=== PATIENT | male | born 1985 | race American Indian/Alaskan Native ===

== ENCOUNTER 2019-06-30 04:17 | Emergency (ER) | payer SELFPAY ==
[2019-06-30 05:09] LABS: Basophils # (Auto) 0.1 K/mm3 (0.0-0.1); Basophils % (Auto) 1.4 % (0.0-1.8); Eosinophils # (Auto) 0.4 K/mm3 (0.0-0.4); Eosinophils % (Auto) 6.1 % (0.0-4.3); Hematocrit 43.2 % (35.5-45.6); Hemoglobin 15.2 gm/dl (11.8-15.2); Lymphocytes # (Auto) 2.3 K/mm3 (1.2-5.4); Lymphocytes % (Auto) 38.2 % (13.4-35.0); Mean Corpuscular HGB Conc 35 % (32-34); Mean Corpuscular Volume 87 fl (84-94); Monocytes # (Auto) 0.4 K/mm3 (0.0-0.8); Monocytes % (Auto) 7.5 % (0.0-7.3); Platelet Count 261 K/mm3 (140-440); Red Blood Count 4.99 M/mm3 (3.65-5.03)
[2019-06-30 05:24] LABS: Alanine Aminotransferase 24 units/L (7-56); Albumin 4.4 g/dL (3.9-5); BUN/Creatinine Ratio 17; Blood Urea Nitrogen 15 mg/dL (9-20); Calcium 8.6 mg/dL (8.4-10.2); Hemolysis Index 14
[2019-06-30] MEDS ORDERED: MORPHINE 4 MG/1 ML INJ IV ONE (06:00)
[2019-06-30] MEDS ORDERED: ONDANSETRON 4 MG/2 ML INJ IV ONE (06:00)
[2019-06-30] MEDS ORDERED: SODIUM CHLORIDE 0.9% 1000 ML 1,000 ML IV ONE (06:01)
[2019-06-30 07:22] LABS: Bilirubin,Urine NEG (Negative); Blood,Urine LG (Negative); Color,Urine Yellow (Yellow); Mucus,Urine FEW /HPF; Protein,Urine <15 mg/dL mg/dL (Negative); Urobilinogen,Urine < 2.0 mg/dL (<2.0)
--- NOTE | 2019-06-30 07:44 | Emergency Department Report ---
ED Abdominal Pain HPI - General Chief Complaint: Abdominal Pain Stated Complaint: RIGHT FLANK PAIN/NADIA Time Seen by Provider: 06/30/19 07:30 Source: patient Mode of arrival: Ambulatory Limitations: No Limitations - History of Present Illness Initial Comments: This is a 34-year-old male with no prior medical history who presents to ED complaining of right flank pain that started today. Patient states that he woke up and started experiencing right-sided flank pain and had 1 episode of vomiting that resolved. Patient denies any history of kidney stone. Patient also denies dysuria, fever, chills, nausea, abdominal pain, chest pain, shortness of breath. Patient denies any recent unusual foods. MD Complaint: abdominal pain Severity scale (0 -10): 5 - Related Data Previous Rx's Medication Instructions Recorded Last Taken Type Chlorthalidone [Thalitone] 25 mg PO QDAY #30 tablet 10/19/15 Unknown Rx Famotidine [Pepcid] 20 mg PO BID #20 tablet 06/30/19 Unknown Rx Ketorolac [Toradol] 10 mg PO Q6H PRN #20 tablet 06/30/19 Unknown Rx Ondansetron (Nf) [Zofran TAB] 8 mg PO Q8HR #20 tablet 06/30/19 Unknown Rx Allergies Allergy/AdvReac Type Severity Reaction Status Date / Time No Known Allergies Allergy Unverified 10/18/15 10:09 ED Review of Systems ROS: Stated complaint: RIGHT FLANK PAIN/NADIA Other details as noted in HPI Comment: All other systems reviewed and negative ED Past Medical Hx - Past Medical History Previous Medical History?: No Hx Congestive Heart Failure: No Hx Diabetes: No Hx Asthma: No Hx COPD: No - Surgical History Past Surgical History?: Yes Hx Appendectomy: Yes Additional Surgical History: "FLUID DRAINED FROM BRAIN" - Social History Smoking Status: Never Smoker Substance Use Type: Alcohol - Medications Home Medications: Home Medications Medication Instructions Recorded Confirmed Last Taken Type Chlorthalidone [Thalitone] 25 mg PO QDAY #30 tablet 10/19/15 Unknown Rx Famotidine [Pepcid] 20 mg PO BID #20 tablet 06/30/19 Unknown Rx Ketorolac [Toradol] 10 mg PO Q6H PRN #20 tablet 06/30/19 Unknown Rx Ondansetron (Nf) [Zofran TAB] 8 mg PO Q8HR #20 tablet 06/30/19 Unknown Rx ED Physical Exam - General Limitations: No Limitations General appearance: alert, in no apparent distress - Head Head exam: Present: atraumatic, normocephalic - Eye Eye exam: Present: normal appearance - ENT ENT exam: Present: mucous membranes moist - Neck Neck exam: Present: normal inspection - Respiratory Respiratory exam: Present: normal lung sounds bilaterally. Absent: respiratory distress - Cardiovascular Cardiovascular Exam: Present: regular rate, normal rhythm. Absent: systolic murmur, diastolic murmur, rubs, gallop - GI/Abdominal GI/Abdominal exam: Present: soft, normal bowel sounds. Absent: tenderness (nontender in all quadrants of the abdomen), guarding, rebound, mass - Rectal Rectal exam: Present: deferred - Extremities Exam Extremities exam: Present: normal inspection, full ROM - Back Exam Back exam: Present: normal inspection, full ROM. Absent: tenderness, CVA tenderness (R), CVA tenderness (L) - Neurological Exam Neurological exam: Present: alert, oriented X3, normal gait - Psychiatric Psychiatric exam: Present: normal affect, normal mood - Skin Skin exam: Present: warm, dry, intact, normal color. Absent: rash ED Course Vital Signs 06/30/19 04:23 Temperature 97.8 F Pulse Rate 81 Respiratory 18 Rate Blood Pressure 124/73 O2 Sat by Pulse 98 Oximetry ED Medical Decision Making - Lab Data Result diagrams: 06/30/19 04:54 06/30/19 04:54 Laboratory Last Values WBC 5.9 K/mm3 (4.5-11.0) 06/30/19 04:54 RBC 4.99 M/mm3 (3.65-5.03) 06/30/19 04:54 Hgb 15.2 gm/dl (11.8-15.2) 06/30/19 04:54 Hct 43.2 % (35.5-45.6) 06/30/19 04:54 MCV 87 fl (84-94) 06/30/19 04:54 MCH 30 pg (28-32) 06/30/19 04:54 MCHC 35 % (32-34) H 06/30/19 04:54 RDW 14.0 % (13.2-15.2) 06/30/19 04:54 Plt Count 261 K/mm3 (140-440) 06/30/19 04:54 Lymph % (Auto) 38.2 % (13.4-35.0) H 06/30/19 04:54 [place] % (Auto) 7.5 % (0.0-7.3) H 06/30/19 04:54 Eos % (Auto) 6.1 % (0.0-4.3) H 06/30/19 04:54 Baso % (Auto) 1.4 % (0.0-1.8) 06/30/19 04:54 Lymph # 2.3 K/mm3 (1.2-5.4) 06/30/19 04:54 [place] # 0.4 K/mm3 (0.0-0.8) 06/30/19 04:54 Eos # 0.4 K/mm3 (0.0-0.4) 06/30/19 04:54 Baso # 0.1 K/mm3 (0.0-0.1) 06/30/19 04:54 Seg Neutrophils % 46.8 % (40.0-70.0) 06/30/19 04:54 Seg Neutrophils # 2.8 K/mm3 (1.8-7.7) 06/30/19 04:54 Sodium 138 mmol/L (137-145) 06/30/19 04:54 Potassium 3.6 mmol/L (3.6-5.0) 06/30/19 04:54 Chloride 100.0 mmol/L (98-107) 06/30/19 04:54 Carbon Dioxide 25 mmol/L (22-30) 06/30/19 04:54 Anion Gap 17 mmol/L 06/30/19 04:54 BUN 15 mg/dL (9-20) 06/30/19 04:54 Creatinine 0.9 mg/dL (0.8-1.5) 06/30/19 04:54 Estimated GFR > 60 ml/min 06/30/19 04:54 BUN/Creatinine Ratio 17 % 06/30/19 04:54 Glucose 142 mg/dL (75-100) H 06/30/19 04:54 Calcium 8.6 mg/dL (8.4-10.2) 06/30/19 04:54 Total Bilirubin 0.40 mg/dL (0.1-1.2) 06/30/19 04:54 AST 26 units/L (5-40) 06/30/19 04:54 ALT 24 units/L (7-56) 06/30/19 04:54 Alkaline Phosphatase 69 units/L (35-129) 06/30/19 04:54 Total Protein 7.3 g/dL (6.3-8.2) 06/30/19 04:54 Albumin 4.4 g/dL (3.9-5) 06/30/19 04:54 Albumin/Globulin Ratio 1.5 % 06/30/19 04:54 Urine Color Yellow (Yellow) 06/30/19 06:55 Urine Turbidity Clear (Clear) 06/30/19 06:55 Urine pH 7.0 (5.0-7.0) 06/30/19 06:55 Ur Specific [place] 1.015 (1.003-1.030) 06/30/19 06:55 Urine Protein <15 mg/dl mg/dL (Negative) 06/30/19 06:55 Urine Glucose (UA) Neg mg/dL (Negative) 06/30/19 06:55 Urine Ketones Tr mg/dL (Negative) 06/30/19 06:55 Urine Blood Lg (Negative) 06/30/19 06:55 Urine Nitrite Neg (Negative) 06/30/19 06:55 Urine Bilirubin Neg (Negative) 06/30/19 06:55 Urine Urobilinogen < 2.0 mg/dL (<2.0) 06/30/19 06:55 Ur Leukocyte Esterase Neg (Negative) 06/30/19 06:55 Urine WBC (Auto) 4.0 /HPF (0.0-6.0) 06/30/19 06:55 Urine RBC (Auto) 83.0 /HPF (0.0-6.0) 06/30/19 06:55 U Epithel Cells (Auto) < 1.0 /HPF (0-13.0) 06/30/19 06:55 Urine Mucus Few /HPF 06/30/19 06:55 - Medical Decision Making This 34-year-old male presented with right sided flank pain Patient received 1 L of fluids, Zofran and morphine in the ED for pain. All vital signs are normal. All labs were within normal limits no leukocytosis, BMP was within normal limits as well, urinalysis shows no signs of infection. no signs of dehydration noted. 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 Referrals given to patient. Critical care attestation.: If time is entered above; I have spent that time in minutes in the direct care of this critically ill patient, excluding procedure time. ED Disposition Clinical Impression: Flank pain Disposition: DC-01 TO HOME OR SELFCARE Is pt being admited?: No Does the pt Need Aspirin: No Condition: Stable Instructions: Flank Pain (ED), Abdominal Pain (ED) Additional Instructions: Make sure to follow up with the primary care physician as discussed. Take all your medications as you've been prescribed. If you have any worsening symptoms or develop new symptoms please return to ED immediately. Prescriptions: Famotidine [Pepcid] 20 mg PO BID #20 tablet Ketorolac [Toradol] 10 mg PO Q6H PRN #20 tablet PRN Reason: Pain Ondansetron (Nf) [Zofran TAB] 8 mg PO Q8HR #20 tablet Referrals: [facility] [Provider Group] - 3-5 Days Forms: Accompanied Note, Work/School Release Form(ED) Time of Disposition: 08:08
[2019-06-30 08:25] VITALS: BP 130/81
== END 2019-06-30 08:16 | disposition home or self-care (01) ==
LOC: ED 04:17
DX: R10.9 Unspecified abdominal pain (principal); R11.10 Vomiting, unspecified
CPT/HCPCS: 36415; 80053; 81001; 85025; 96361; 96374; 96375; 99283; J2270; J2405